=== PATIENT | female | born 1990 | race Hispanic/Latino ===

== ENCOUNTER 2020-09-23 17:00 | Emergency (ER) | payer SELFPAY ==
[2020-09-23 17:51] LABS: #Basophils 0.1 10x3/uL (0.0-0.2); #Eosinphils 0.1 10x3/uL (0.0-0.5); #Monocytes 0.7 10x3/uL (0.0-1.1); #Neutrophils 4.4 10x3/uL (1.5-8.4); %Basophils 0.6 % (0.0-2.0); %Eosinophils 1.2 % (0.0-6.0); %Lymphocytes 37.3 % (18.0-47.0); %Neutrophils 52.5 % (40.0-75.0); Hemoglobin 11.6 g/dL (12.0-15.5); Mean Corpuscular Hemoglobin 30.3 pg (27.0-33.0); Mean Corpuscular Volume 91.6 fl (81.6-98.3); Mean Platelet Volume 11.1 fl (7.4-10.4); Platelet Count 296 10x3/uL (150-450); RBC Distribution Width 13.1 % (11.5-14.5); Red Blood Cell (RBC) Count 3.83 10x6/uL (3.90-5.03); White Blood Cell (WBC) Count 8.5 10x3/uL (3.5-10.5)
[2020-09-23 17:53] LABS: BHCG - Serum POSITIVE (NEGATIVE); Pregs Control Background? CLEAR/WHITE (CLR/WHITE); Pregs Control Bar Appear? YES (CONTROL BAR)
[2020-09-23 18:01] LABS: Bilirubin Neg (Negative); Blood, Urine 250 (Negative); Clarity Clear (Clear); Glucose, Urine (Dipstick) Normal (Negative); Ketone, Urine Negative (Negative); Leukocyte Negative (Negative); Nitrite Negative (Negative); Protein, Urine (Dipstick) Negative (Neg-Trace); Urobilinogen Normal mg/dL (Less than 2)
[2020-09-23 18:05] LABS: ALT (SGPT) 62 U/L (8-55); AST (SGOT) 33 U/L (5-34); Alkaline Phosphatase 59 U/L (40-110); Anion Gap 9 mmol/L (10-20); BUN (Urea Nitrogen) 7 mg/dL (7.0-18.7); Bilirubin, Total 0.3 mg/dL (0.2-1.2); Calc. Creatinine Clearance 0 mL/min (70-130); Calcium 9.8 mg/dL (7.8-10.44); Carbon Dioxide 27 mmol/L (22-29); Chloride 106 mmol/L (98-107); Globulin 3.3 g/dL (2.4-3.5); Glucose 119 mg/dL (70-105); Potassium 3.6 mmol/L (3.5-5.1); Protein, Total 7.3 g/dL (6.0-8.3); Sodium 138 mmol/L (136-145)
[2020-09-23 18:12] LABS: Bacteria/HPF 1+ HPF (None Seen); RBC/HPF None Seen HPF (0-3); Squamous Epithelial 0-3 HPF (0-3); WBC/HPF None Seen HPF (0-3)
[2020-09-23 18:13] LABS: Mucous/LPF Rare LPF (<2+)
== END 2020-09-23 19:44 | disposition home or self-care (01) ==
LOC: CSHERS 17:00
DX: O03.4 Incomplete spontaneous abortion without complication (principal)
CPT/HCPCS: 80053; 81003; 81015; 84702; 84703; 85025; 86900; 86901

== ENCOUNTER 2022-02-10 10:18 | Inpatient (IN) | payer MEDICAID, OTHER ==
[2022-02-10 11:40] VITALS: BMI 32.1
[2022-02-10] MEDS ORDERED: Ondansetron PF 4 MG/2 ML Vial IVP PRN ×3 (12:13→21:44)
[2022-02-10] MEDS ORDERED: Bicitra 30 ML UDCUP PO PRN (12:13)
[2022-02-10] MEDS ORDERED: hydrALAZINE 20 MG/ML VIAL SLOW IVP PRN ×2 (12:13→21:44)
[2022-02-10] MEDS ORDERED: Promethazine HCl 25 MG/ML VIAL IM PRN ×3 (12:13→21:44)
[2022-02-10] MEDS ORDERED: Famotidine/PF 20 mg/2ml Vial SLOW IVP PRN (12:13)
[2022-02-10] MEDS ORDERED: CEFAZOLIN 2 GM in Sodium Chloride 0.9% 100 ML IVPB SCH (12:15)
[2022-02-10] MEDS ORDERED: Lactated Ringer's 1,000 ML IV SCH (12:15)
[2022-02-10 13:05] LABS: Hemoglobin 12.1 g/dL (12.0-15.5); Platelet Count 184 10x3/uL (150-450)
[2022-02-10 13:16] LABS: SARS-CoV-2 NAA Rapid Test Not Detected (NotDetected)
[2022-02-10 13:20] LABS: Syphilis Antibody Nonreactive (Nonreactive); Syphilis Antibody Index 0.04 S/CO (<1.00 Non-Reactive)
[2022-02-10 13:21] LABS: HBSAg Index 0.26 S/CO (0-0.99); Hep B Surf Ag Non-Reactive S/CO (NonReactive)
[2022-02-10 13:25] LABS: Creatinine, Urine 54.15 mg/dL (47-110)
[2022-02-10 13:31] LABS: ALT (SGPT) 29 U/L (8-55); AST (SGOT) 26 U/L (5-34); Albumin 3.1 g/dL (3.5-5.0); Alkaline Phosphatase 247 U/L (40-110); Anion Gap 15 mmol/L (10-20); BUN (Urea Nitrogen) 10 mg/dL (7.0-18.7); Bilirubin, Total 0.6 mg/dL (0.2-1.2); Calc. Creatinine Clearance 168 mL/min (70-130); Calcium 8.8 mg/dL (7.8-10.44); Carbon Dioxide 17 mmol/L (22-29); Chloride 106 mmol/L (98-107); Estimated GFR 123; Globulin 3.4 g/dL (2.4-3.5); Glucose 69 mg/dL (70-105); Potassium 4.5 mmol/L (3.5-5.1); Protein, Total 6.5 g/dL (6.0-8.3); Sodium 133 mmol/L (136-145)
[2022-02-10] MEDS ORDERED: Fentanyl 100 MCG/2 ML VIAL ONE (17:18)
[2022-02-10] MEDS ORDERED: Morphine PF 10 MG/10 ML VIAL ONE (17:18)
[2022-02-10] MEDS ORDERED: Ondansetron PF 4 MG/2 ML Vial ONE (17:19)
[2022-02-10] MEDS ORDERED: Dexamethasone 4 mg/ml Vial ONE (17:19)
[2022-02-10] MEDS ORDERED: Oxytocin 10 UNITS/ML VIAL ONE (17:20)
[2022-02-10] MEDS ORDERED: Ketorolac Tromethamine 30 MG/ML VIAL ONE (17:20)
[2022-02-10] MEDS ORDERED: diphenhydrAMINE 50 MG/ML VIAL IVP PRN (19:13)
[2022-02-10] MEDS ORDERED: Promethazine HCl 25 MG SUPP PR PRN (19:13)
[2022-02-10] MEDS ORDERED: Meperidine HCl/PF 25 MG/ML VIAL SLOW IVP PRN (19:13)
[2022-02-10] MEDS ORDERED: Ketorolac Tromethamine 30 MG/ML VIAL IVP PRN (19:13)
[2022-02-10] MEDS ORDERED: Fentanyl 100 MCG/2 ML VIAL SLOW IVP PRN (19:13)
[2022-02-10] MEDS ORDERED: Naloxone HCl 0.4 mg/ml Vial IVP PRN ×2 (19:13)
[2022-02-10] MEDS ORDERED: Ondansetron HCl/PF 4 MG/2 ML Vial IVP PRN (19:13)
[2022-02-10] MEDS ORDERED: HYDROmorphone 2 MG/ML VIAL SLOW IVP PRN (19:13)
[2022-02-10] MEDS ORDERED: Moisturizing Cream (Eucerin) 113 GM JAR TOP PRN (19:13)
[2022-02-10] MEDS ORDERED: Naloxone HCl 0.4 mg/ml Vial IV PRN (19:13)
[2022-02-10] MEDS ORDERED: Ketorolac Tromethamine 30 MG/ML VIAL IVP SCH (19:15)
[2022-02-10] MEDS ORDERED: Communication Order-Pharmacy FS SCH (19:15)
[2022-02-10] MEDS ORDERED: Boostrix 0.5 ML (Tdap) VIAL (>/=7 yrs of age) IM ONE (21:44)
[2022-02-10] MEDS ORDERED: cloNIDine 0.1 MG TAB PO PRN (21:44)
[2022-02-10] MEDS ORDERED: NS w/ Oxytocin 30 units 500 ML IV SCH (21:44)
[2022-02-10] MEDS ORDERED: Bisacodyl 10 MG SUPP PR PRN (21:44)
[2022-02-10] MEDS ORDERED: Lanolin Ointment 7 GM TUBE TOP PRN (21:44)
[2022-02-10] MEDS ORDERED: diphenhydrAMINE 25 MG CAP PO PRN (21:44)
[2022-02-10] MEDS ORDERED: Ferrous Sulfate 325 MG TAB PO SCH (22:00)
[2022-02-10] MEDS ORDERED: Docusate 100 MG CAP PO SCH (22:00)
[2022-02-11] MEDS: Ketorolac Tromethamine 30 MG/ML VIAL IVP SCH ×3 (00:17→13:39)
[2022-02-11 04:38] LABS: Hemoglobin 11.7 g/dL (12.0-15.5); Mean Corpuscular HGB CONC 34.1 g/dL (32.0-36.0); Mean Corpuscular Volume 90.7 fl (81.6-98.3); Mean Platelet Volume 14.4 fl (7.4-10.4); Platelet Count 177 10x3/uL (150-450); RBC Distribution Width 15.3 % (11.5-14.5); Red Blood Cell (RBC) Count 3.78 10x6/uL (3.90-5.03); White Blood Cell (WBC) Count 13.9 10x3/uL (3.5-10.5)
[2022-02-11] MEDS: Simethicone Chewable 80 MG TAB PO PRN ×2 (09:08→21:46)
[2022-02-11] MEDS: HYDROcodone/Acetaminophen 5/325 mg Tablet PO PRN ×2 (09:08→15:47)
[2022-02-11] MEDS: Losartan 25 MG TAB PO SCH (09:08)
[2022-02-11] MEDS: Ferrous Sulfate 325 MG TAB PO SCH ×2 (09:09→21:48)
[2022-02-11] MEDS: Prenatal Vitamin 1 TAB PO SCH (09:09)
[2022-02-11] MEDS: Docusate 100 MG CAP PO SCH ×2 (09:09→21:46)
[2022-02-11] MEDS: Ibuprofen 800 MG TAB PO SCH (21:46)
[2022-02-12] MEDS: Ketorolac Tromethamine 30 MG/ML VIAL IVP SCH (00:21)
[2022-02-12] MEDS: Simethicone Chewable 80 MG TAB PO PRN ×2 (04:37→22:02)
[2022-02-12] MEDS: HYDROcodone/Acetaminophen 5/325 mg Tablet PO PRN ×3 (04:38→18:05)
[2022-02-12] MEDS: Ibuprofen 800 MG TAB PO SCH ×3 (05:53→22:02)
[2022-02-12] MEDS: Ferrous Sulfate 325 MG TAB PO SCH ×2 (08:35→23:05)
[2022-02-12] MEDS: Prenatal Vitamin 1 TAB PO SCH (08:37)
[2022-02-12] MEDS: Docusate 100 MG CAP PO SCH ×2 (08:38→22:02)
[2022-02-12] MEDS: Losartan 25 MG TAB PO SCH (08:38)
[2022-02-13] MEDS: HYDROcodone/Acetaminophen 5/325 mg Tablet PO PRN (02:18)
[2022-02-13] MEDS: Ibuprofen 800 MG TAB PO SCH (05:51)
[2022-02-13] MEDS: Prenatal Vitamin 1 TAB PO SCH (08:20)
[2022-02-13] MEDS: Losartan 25 MG TAB PO SCH (08:21)
[2022-02-13] MEDS: Docusate 100 MG CAP PO SCH (08:21)
[2022-02-13] MEDS: Ferrous Sulfate 325 MG TAB PO SCH (08:22)
[2022-02-13 08:42] VITALS: BP 133/59; TEMP 98
== END 2022-02-13 14:00 | disposition home or self-care (01) | DRG 788 ==
LOC: CSHLD/OP 10:18 → CSHLD 18:50 → CSHPP 21:08
PROVIDERS: ADMIT Family Medicine; ATTEND Family Medicine
PROC: 10D00Z1 Extraction of Products of Conception, Low, Open Approach (ICD-10-PCS; principal; 2022-02-10)
DX: O34.211 Maternal care for low transverse scar from previous cesarean delivery (principal); Z37.0 Single live birth; Z20.822 Contact with and (suspected) exposure to COVID-19; Z3A.37 37 weeks gestation of pregnancy; O99.62 Diseases of the digestive system complicating childbirth; K66.0 Peritoneal adhesions (postprocedural) (postinfection); O14.90 Unspecified pre-eclampsia, unspecified trimester; O24.420 Gestational diabetes mellitus in childbirth, diet controlled; Z79.899 Other long term (current) drug therapy
CPT/HCPCS: 36415; 51702; 80053; 82570; 84156; 85014; 85018; 85027; 85049; 86780; 86850; 86900; 86901; 87340; 99285; J1100; J1885; J2274; J2405; J2590; J3010; U0002